=== PATIENT | male | born 1945 | race Asian ===

== ENCOUNTER 2017-03-10 21:07 | Inpatient (IN) | payer MEDICAID ==
[~2017-03-10] VITALS: Ht 172.7 cm; Wt 72.6 kg
--- NOTE | 2017-03-10 21:24 | NUR ---
PT C/O NOSEBLEED X 1 HR. BROUGHT IN BY EMS. HX OF CA. DR. MATTSON NOTIFIED, PLACED ON MONITOR. NO ACUTE DISTRESS
--- NOTE | 2017-03-10 22:02 | NUR ---
dr. navarrete at bedside to reassess nose
[2017-03-10 22:05] LABS: CALCIUM 7.8 mg/dL (8.5-10.1); CHLORIDE SERUM 104 mmol/L (98-107); CREATININE SERUM 0.7 mg/dL (0.7-1.3); GFR1 > 60 mL/min; GLUCOSE SERUM 134 mg/dL (74-106); POTASSIUM SERUM 3.4 mmol/L (3.5-5.1); SODIUM SERUM 137 mmol/L (136-145)
[2017-03-10 22:10] LABS: ALKALINE PHOSPHATASE 162 U/L (46-116); ALT/SGPT 76 U/L (16-63); AST/SGOT 62 U/L (15-37); BILIRUBIN TOTAL 1.69 mg/dL (0.20-1.00)
[2017-03-10 22:12] LABS: ALBUMIN 2.4 g/dL (3.4-5.0); TOTAL PROTEIN, SERUM 5.8 g/dL (6.4-8.2)
[2017-03-10 22:25] LABS: RED CELL DISTRIBUTION WIDTH 15.4 % (11.5-14.5)
[2017-03-10 22:26] LABS: PLATELET COUNT 9 x10^3mcL (130-400)
[2017-03-10 22:32] LABS: BAND NEUTROPHIL 0 % (0-10); BASOPHIL 0 % (0-2); MONOCYTE 10 % (0-7); PLATELET MORPHOLOGY PLATELETS DECREASED; SEGMENTED NEUTROPHILS 75 % (37-75); rbc morphology (normal/abnorm) ABNORMAL (NORMAL)
--- NOTE | 2017-03-10 22:49 | NUR ---
PT HAS PICC LINE IN R FA
[2017-03-10 23:30] LABS: microscopic required? NO
--- NOTE | 2017-03-10 23:42 | NUR ---
REPORT CALLED TO GOOD BEDOYA
[2017-03-10 23:48] LABS: UA SPECIFIC GRAVITY 1.015 (1.005-1.035); urine erythrocyte NEGATIVE (NEGATIVE)
[2017-03-11] VITALS (8 sets, daily range): BP systolic 128–146; BP diastolic 61–71
--- NOTE | 2017-03-11 00:26 | NUR ---
RECEIVED PT FROM ED VIA YOLANDA. ORIENTED PT TO ROOM AND SURROUNDINGS. IV NOTED TO LEFT HAND PATENT AND INTACT .TELE 8 PLACED ON PT READING NSR. INSTRUCED PT ON THE USE OF CALL LIGHT FOR ASSISTANCE. ENDORSED PT TO PRIMARY NURSE GOOD
--- NOTE | 2017-03-11 00:31 | NUR ---
RECEIVED PT FROM LEELEE RN. PT A/OX4. MANDARIN SPEAKING. FAMILY AT BEDSIDE. IV TO L HAND PATENT. PICC LINE TO L UPPER ARM, DRESSING CDI. NSR ON TELE 8. DENIES PAIN. DENIES SOB ON 2L SIMPLE MASK. RHINOROCKET TO R NOSTRIL FOR BLEED. PT WITH REDNESS TO FULL BODY. DENIES ITCHING OR DISCOMFORT. ORIENTED TO ROOM AND SURROUNDINGS. CALL LIGHT WITHIN REACH, BED IN LOW POSITION. WILL CONTINUE TO MONITOR.
[2017-03-11 00:37] LABS: MAGNESIUM 2.2 mg/dL (1.8-2.4); PHOSPHOROUS 4.4 mg/dL (2.5-4.9)
[2017-03-11 00:38] LABS: T3 TOTAL 0.46 ng/mL
[2017-03-11 00:47] LABS: FREE T4 1.47 ng/dL (0.76-1.46); FREE THYROXINE INDEX 4.4 ug/dL (1.4-4.5); T4(THYROXINE) 11.4 ug/dL (4.7-13.3)
--- NOTE | 2017-03-11 01:52 | NUR ---
PLATELETS TRANSFUSED WITH NO S/S OF REACTION. PT TOLERATED WELL. WILL CONTINUE TO MONITOR.
[2017-03-11 02:20] LABS: RED BLOOD CELLS 2.85 M/mm3 (4.52-5.90)
[2017-03-11 03:11] LABS: IRON 117 ug/dL (65-170)
[2017-03-11 03:12] LABS: TOTAL IRON BINDING CAPACITY 145 ug/dL (250-450)
[2017-03-11 03:17] LABS: RED CELL DISTRIBUTION WIDTH 15.7 % (11.5-14.5)
[2017-03-11 03:19] LABS: PLATELET COUNT 17 x10^3mcL (130-400)
[2017-03-11 03:42] LABS: ATYPICAL LYMPH 1 %; BAND NEUTROPHIL 5 % (0-10); BASOPHIL 0 % (0-2); METAMYELOCTE 4 % (0-2); MONOCYTE 18 % (0-7); MYELOCYTE 1 % (0-2); SEGMENTED NEUTROPHILS 17 % (37-75)
[2017-03-11 03:44] LABS: rbc morphology (normal/abnorm) ABNORMAL (NORMAL)
[2017-03-11 03:45] LABS: PLATELET MORPHOLOGY PLATELETS DECREASED
--- NOTE | 2017-03-11 06:03 | NUR ---
PT RESTING IN NO ACUTE DISTRESS. RR EVEN AND UNLABORED. FAMILY AT BEDSIDE. WILL CONTINUE TO MONITOR.
--- NOTE | 2017-03-11 08:03 | NUR ---
AAO. MANDARIN SPEAKING, PRESENT, SPEAKS A LITTLE BIT OF IVORIAN. WILL USE INTERPRETOR PHONE IF NEEDED. RHINO ROCKET TO RIGHT NARES. LUNGS CTA. NO SOB. O2 SAT ON 2L SIMPLE MASK 98%. BS'S ACTIVE TIMES 4. TOLERATING CLEAR LIQUIDS FAIRLY. PERIPHERAL PULSES PALPABLE. NO EDEMA. SCD BLE. SCATTERED PETECHIAE OVER BODY, BUE AND BLE. NO C/O PAIN. COOPERATIVE.
--- NOTE | 2017-03-11 08:26 | NUR ---
DR MONTE AND THE MEDICINE TEAM SAW THE PT. THE PLAN TODAY IS TO GIVE HIM PLATELETS. AND WHEN THE SON COMES, THE PRIMARY RESIDENT WILL HAVE A MEETING WITH THE FAMILY ABOUT PLAN OF CARE GOING FORWARD FOR MR FORTE.
--- NOTE | 2017-03-11 13:46 | NUR ---
DR BRITTON COVERING DR JOE. I TOLD HER THAT THE PT WOULDNT TAKE HIS PILLS THIS AM BECAUSE HE SAID HE COULDNT SWALLOW. NOW HE IS WANTING TO EAT, HE SAYS HES HUNGRY AND WANTS P[place]. DR BRITTON IS ORDERING A SWALLOW EVAL.
--- NOTE | 2017-03-11 15:18 | NUR ---
RECORD LIBRARIAN note (bedside swallow evaluation completed) [id number]. Bedside swallow evaluation completed, please see report for details. RECORD LIBRARIAN provided pt and pt's daughter (at bedside) with education regarding purpose of evaluation and rationale for recommendations. Pt's daughter verbalized understanding and agreement with recommendations at this time. Recommend: 1) pureed textures (per pt's/family's preference) 2) thin liquids 3) aspiration precautions (including pt must be fully awake/alert/upright for any PO intakes, alternate small/slow bites and sips, stop giving PO if pt becomes less alert/SOB/coughing) 4) feeding assistance 5) no further RECORD LIBRARIAN intervention indicated at this time. Physician to reorder if further concerns arise, as appropriate. G-codes: [id number] NOMS level 4. PVE for d/w RN (Yaquelin) prior to and following bedside swallow evaluation completion. RECORD LIBRARIAN posted safe swallow strategies sign above pt's HOB following review with RN and pt's daughter (in Mandarin Irish).
--- NOTE | 2017-03-11 15:29 | NUR ---
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 WBC:3.7L, H/H:6.9/20L Meds: Colace, Ferrous sulfate, Humulin, NS IV, Theragran, Zofran Diet:Clear liquid PO Intake: (03/11) B: 20% pt being fed by family Ht:68in, 5'8" Wt:160#, 72.57kg BMI:24.3kg/m2 (normal) IBW: 154#, 70kg %IBW:104 % UBW:pt's does know but has noticed recent wt loss. Age:71 y/o male Food Allergies:NKFA Skin:scattered petechiae Hang:15 Edema:None GI:active bowel sounds Last BM:03/10 Nursing Trigger: appears underweight/malnourished Pt admitted with Pancytopenia Plat 9, WBC 3.3, Hgb 7.5 hct 22 MCV 87 likley 2/2 leukemia and bladder cancer per H&P. Per RN note 03/11, plan today is for patient to the [facility] and whnd son comes, the primary resident will have a meeting with the family about going forward for Mr. Loja. During visit, observed pt laying in bed sleeping with at bedside. Student nurse helped translate during RD interview. Observed pt's using using a spoon to spoon feed pt water and pt was laying flat. Explained pt can aspirate. Swallow evaluation was ordered by Dr. Thompson. Pt was not hungry for breakfast and is hungry for lunch, asking for porridege. RD explained that the pt should be cleared first by the Speech Therapist, pt's agreeable. Per speech therapist note 03/11, recommend pureed with thin liquids per pt's family preference. Problem with: N: No V: No D:No C:No Problems with: Chewing:No Swallowing: No Current appetite: fair Recent wt change:unable to assess %wt change:N/A Vitamin/Supplement use:No Special diet at home:Regular Physical activity: uses wheelchair Education: RD educated pt's on making sure the pt is sitting up when giving fluids. Pt's receptive. Estimated Nutritional Needs Based on actual body weight 73 kg Energy:2190-2555kcal/d (30-35kcal/kg for leukemia and bladder cancer) Protein: 73-88g/d (1-1.2g/kg for repletion) Fluid:2190 ml/d (30ml/kg for maintenance) or per doctor Nutrition Diagnosis 1. Increased nutrient needs related to increased metabolic demands as evidenced by pt with Leukemia and bladder cancer. Intervention 1. Recommend CCHO pureed per Speech Therapist recommendation. 2. If pt's PO<75%, recommend adding Boost Glucose Control BID (provides 500kcal and 28 g protein) . Consider liberalizing diet to Reg pureed if pt with poor PO intake. Monitor/Evaluate Goal: PO intake at least 75% of estimated needs Monitor: PO intake, Labs, GI function F/U in 2-3 days as high risk:03/13-
--- NOTE | 2017-03-11 15:33 | NUR ---
1. Recommend CCHO pureed per Speech Therapist recommendation. 2. If pt's PO<75%, recommend adding Boost Glucose Control BID (provides 500kcal and 28 g protein) . Consider liberalizing diet to Reg pureed if pt with poor PO intake.
--- NOTE | 2017-03-11 16:42 | NUR ---
PERMISSION FROM DR BRITTON WAS RECIEVED TO USE THE PIC LINE, AFTER DR BRITTON LOOKED AT THE CXR RESULTS. PLATELETS WERE STARTED AT 1615, CHECKED THE PLATELET INFO WITH ROMELIA BEDOYA. NO TRANSFUSION REACTION WAS NOTED AFTER 15 MINUTES AND THE VS'S WERE NORMAL FOR PATIENT, SO THE RATE WAS INCREASED FROM 60 ML PER HOUR, SO THE RATE WAS TURNED UP PER PROTOCOL.
--- NOTE | 2017-03-11 17:32 | NUR ---
PLATELET PHARESIS FINSIHED AT 171. NO TRANSFUSION REACCTION NOTED. VS'S STABLE, TEMP 99.8. TYLENOL WAS GIVEN AT 165. PT'S GRANDSON PRESENT.
[2017-03-11 18:15] LABS: PLATELET COUNT 40 x10^3mcL (130-400); RED CELL DISTRIBUTION WIDTH 15.6 % (11.5-14.5)
--- NOTE | 2017-03-11 18:20 | NUR ---
AAO TIMES 4. GRANDSON PRESENT. TELE # 8 SR. VS'S STABLE. NO SOB. PIC LINE TO [facility] WITH ONLY ONE PORT WORKING, THE PURPLE WITH PURPLE BAND WORKS ONLY. IV SITE TO PATENT, CDI. TOLERATING FULL LIQUID DIET. NO C/O PAIN.
[2017-03-11 18:41] LABS: BAND NEUTROPHIL 2 % (0-10); BASOPHIL 0 % (0-2); MONOCYTE 3 % (0-7); SEGMENTED NEUTROPHILS 58 % (37-75)
[2017-03-11 18:43] LABS: PLATELET MORPHOLOGY PLATELETS DECREASED; rbc morphology (normal/abnorm) ABNORMAL (NORMAL)
--- NOTE | 2017-03-11 19:30 | NUR ---
PT IS A/O x4. ON TELE #8 NSR. DENIES ANY CHEST APIN AND PRESSURE. PULSES PRESENT. NO EDEMA NOTED. RHINOROCKET NOTED ON R NOSTRIL. NO BLEEDING NOTED. LUNGS ARE CLEAR IN ALL FEILDS. ON ROOM AIR. BOWEL SOUNDS PRESENT x4. ABD IS SOFT. DENIES ANY TENDERNESS. REDNESS SPOTS NOTED THROUGHOUT BODY. SKIN IN TACT. SALINE LOCK ON L HAND. PICC LINE ON RFA, ONLY ONE PORT IN USE. OTHER PORT IS UNABLE TO FLUSH. SITES ARE INTACT. BED IN LOWEST SETTING. CALL LIGHT WITHIN REACH. FAMILY IS AT BEDSIDE. WILL CONITNUE TO MONITOR.
[2017-03-11 22:19] LABS: RED CELL DISTRIBUTION WIDTH 15.2 % (11.5-14.5)
[2017-03-11 22:38] LABS: BAND NEUTROPHIL 3 % (0-10); BASOPHIL 0 % (0-2); MONOCYTE 3 % (0-7); SEGMENTED NEUTROPHILS 28 % (37-75)
[2017-03-11 22:39] LABS: PLATELET MORPHOLOGY PLATELETS DECREASED; rbc morphology (normal/abnorm) ABNORMAL (NORMAL)
[2017-03-11 22:42] LABS: PLATELET COUNT 25 x10^3mcL (130-400)
--- NOTE | 2017-03-12 01:52 | NUR ---
PT IS SLEEPING IN BED. FAMILY IS AT BEDSIDE. PICC LINE ON RFA IS PATENT, INTACT AND RUINNING PER MD ORDER. BED IN LOWEST SETTING. CALL LIGHT WITHIN REACH. WILL CONTINUE TO MONITOR.
--- NOTE | 2017-03-12 05:21 | NUR ---
PT IS SLEEPING IN BED. NO SIGN OF DISTRESS NOTED. PT TEMP WAS AT A 100.3. COOLING MESURES WERE STARTED. ON SIMPLE MASK 5L. NO BLEEDING NOTED. PT GRANDSON AT BEDSIDE. BED IN LOWEST SETTING. PICC LINE INTACT AND INFUSING PER MD ORDER. CALL LIGHT WITHIN REACH. WILL ENDORSE TO AM NURSE.
[2017-03-12 06:06] VITALS: BP 120/55
[2017-03-12 07:17] LABS: CALCIUM 7.6 mg/dL (8.5-10.1); CARBON DIOXIDE 26.3 mmol/L (21-32); CHLORIDE SERUM 102 mmol/L (98-107); CREATININE SERUM 0.7 mg/dL (0.7-1.3); GFR1 > 60 mL/min; GLUCOSE SERUM 114 mg/dL (74-106); MAGNESIUM 2.1 mg/dL (1.8-2.4); PHOSPHOROUS 3.3 mg/dL (2.5-4.9); POTASSIUM SERUM 3.8 mmol/L (3.5-5.1); SODIUM SERUM 136 mmol/L (136-145)
[2017-03-12 07:26] LABS: RED CELL DISTRIBUTION WIDTH 14.5 % (11.5-14.5)
[2017-03-12 07:42] LABS: PLATELET COUNT 17 x10^3mcL (130-400)
--- NOTE | 2017-03-12 07:56 | NUR ---
AAO. PT'S GRANDSON PRESENT, SUPPORTIVE AND CARING. LUNGS WITH FINE CRACKLES TO RIGHT SIDE. O2 SAT ON RA 97%. BS'S ACTIVE TIMES 4. FOUNTAIN WITH GENERALIZED WEAKNESS. PERIPHERAL PULSES PALPABLE, NO EDEMA. RHINO ROCKET TO RIGHT NARES. NO C/O PAIN.
--- NOTE | 2017-03-12 08:19 | NUR ---
DR MONTE AND THE MEDICINE TEAM SAW PT AND HIS GRANDSON AT 0816. THE PLAN TODAY IS TO GET HOSPICE ARRANGED FOR HIM.
[2017-03-12 09:18] LABS: BASOPHIL 0 % (0-2); rbc morphology (normal/abnorm) ABNORMAL (NORMAL)
[2017-03-12 09:19] LABS: PATH REVIEW for HEMA YES; PLATELET MORPHOLOGY PLATELETS DECREASED
[2017-03-12 10:03] VITALS: BP 120/55
[2017-03-12 14:02] LABS: BAND NEUTROPHIL 2 % (0-10); SEGMENTED NEUTROPHILS 8 % (37-75)
[2017-03-12 14:03] LABS: ATYPICAL LYMPH 14 %; MONOCYTE 6 % (0-7)
[2017-03-12 14:04] LABS: METAMYELOCTE 4 % (0-2); MYELOCYTE 4 % (0-2)
[2017-03-12 17:12] VITALS: BP 121/61
--- NOTE | 2017-03-12 17:53 | NUR ---
AAO. NO TELE. IV SITE RAC PIC LINE PATENT, CDI, PURPLE PORT PATENT. FAMILY PRESENT, SUPPORTIVE. NO SOB. NO C/O PAIN. SLEEPING MOST OF TIME, BUT HE IS AROUSABLE TO VERBAL STIMULI.
--- NOTE | 2017-03-12 18:33 | NUR ---
DR JOE AWARE THAT PT'S SON WANTS MR FORTE TO SLEEP, NOT TO WAKE HIM UP TO EAT OR TAKE HIS PILLS DUE AT 1800. THE SON REFUSED THE LACTINEX AND THE IRON PILLS.
--- NOTE | 2017-03-12 19:58 | NUR ---
PT IS A/O X4, VERBAL RESPONSIVE, ABLE TO TELL WHAT HE NEEDS. LUNG SOUND CLEAR BILATERAL, NO COUGH, NO SOB, PT IS ON SIMPLE MASK, PO2 98%, PT DENY ANY SOB AT THIS TIME, BOWEL SOUND PRESENT ALL 4 QUADRANTS, NO DISTENTION, NO TENDER. PEDAL PULSE PRESENT BOTH FEET, NO EDEMA, CENTRAL LINE AT RIGHT FA, DRESSING INTACT, JOELLEN ROCKET AT RIGHT NARE, NO BLEEDING NOTED, FAMILY AT BEDSIDE, ALL ADLS ASSIST, ALL NEED MET, CALL LIGHT IN REACH, WILL CONTINUE TO MONITOR.
[2017-03-12 21:46] VITALS: BP 126/64
--- NOTE | 2017-03-13 00:08 | NUR ---
PT IS RESTING AT BED, NO S/S OF RESPIRATORY DISTRESS, FAMILY AT BEDSIDE, ATB IS GIVEN, WILL CONTINUE TO MONITOR THE PT.
--- NOTE | 2017-03-13 04:37 | NUR ---
PT IS SLEEPING, AWAKE BY TOUCH, DENY ANY RESPIRATORY DISTRESS, DENY ANY PAIN OR DISCOMFORT, PICC LINE AT RIGHT FA, DRESSING INTACT, FAMILY AT BEDSIDE, ALL ADLS ASSIST, ALL NEED MET, CALL LIGHT IN REACH, WILL CONTINUE TO MONITOR.
[2017-03-13 05:29] VITALS: BP 123/62
[2017-03-13 06:37] LABS: RED CELL DISTRIBUTION WIDTH 14.4 % (11.5-14.5)
[2017-03-13 06:39] LABS: CALCIUM 7.2 mg/dL (8.5-10.1); CARBON DIOXIDE 29.3 mmol/L (21-32); CHLORIDE SERUM 104 mmol/L (98-107); CREATININE SERUM 0.7 mg/dL (0.7-1.3); GFR1 > 60 mL/min; GLUCOSE SERUM 102 mg/dL (74-106); POTASSIUM SERUM 3.8 mmol/L (3.5-5.1); SODIUM SERUM 137 mmol/L (136-145)
--- NOTE | 2017-03-13 07:30 | NUR ---
RECEIVED PATIENT IN BED WITH DAUGHTER AT BEDSIDE. PATIENT AWAKE ALERT AND ORIENTED. RHINO ROCKET NOTED IN RIGHT NARE. IVF INFUSING WELL TO LEFT HAND, SITE PATENT. PIC LINE NOTED ON RT F/A. GENERALIZED WEAKNESS NOTED. SCATTERED RED/BROWNISH DISCOLORATIONS NOTED ON BODY. NO OPEN AREAS NOTED. LUNGS CLEAR, RESP EVEN AND UNLABORED ON O2 AT 2L VIA SIMPLE MASK. ABD SOFT BOWEL SOUNDS ACTIVE, VOIDING WELL. WILL CONTINUE TO MONITOR.
[2017-03-13 07:31] LABS: PLATELET COUNT 6 x10^3mcL (130-400)
--- NOTE | 2017-03-13 08:20 | NUR ---
DR MONTE AND MEDICAL TEAM INTO SEE PATIENT AND DISCUSS PLAN OF CARE TO INCLUDE HOSPICE EVAL.
[2017-03-13 09:31] VITALS: BP 124/63
--- NOTE | 2017-03-13 10:00 | NUR ---
HOSPICE REP FROM [facility] AT BEDSIDE TO SPEAK WITH PATIENT'S SON.
[2017-03-13 11:22] LABS: BAND NEUTROPHIL 8 % (0-10); SEGMENTED NEUTROPHILS 8 % (37-75)
[2017-03-13 11:23] LABS: ATYPICAL LYMPH 8 %
[2017-03-13 11:24] LABS: MONOCYTE 12 % (0-7)
[2017-03-13 11:25] LABS: METAMYELOCTE 4 % (0-2); MYELOCYTE 4 % (0-2)
[2017-03-13 11:26] LABS: rbc morphology (normal/abnorm) ABNORMAL (NORMAL)
[2017-03-13 11:28] LABS: PLATELET MORPHOLOGY PLATELETS DECREASED; ovalocyte/elliptocyte 1+
[2017-03-13] MEDS ORDERED: LEVAQUIN750 MG PO (12:35)
[2017-03-13] MEDS ORDERED: LAC PO (12:36)
[2017-03-13 12:54] LABS: BASOPHIL 0 % (0-2)
[2017-03-13 13:21] VITALS: BP 124/63
--- NOTE | 2017-03-13 15:01 | NUR ---
Follow-up Nutrition Assessment Dx:Nasal hemorrhage Labs: (03/13) B, Ca:7.2L, WBC:3.3L, H/H:6.6/20L Meds: Colace, Ferrous sulfate, Lactinex, Levaquuin, NS IV, Theragran, Zofran Diet: Full liquid PO intake: (03/11) B:20%, L:100%, D:100% (03/12) B:50%, L:25%, D:25% (03/13) B:40% Weights: (03/11) 160#, 72.57kg (03/13) unable to weigh patient. Pt's son was very guarded Skin: scattered redness and scabs to lower lip Edema: None Last BM: 03/10 Per bed huddle this morning, a fuels sales representative from [facility] will come to speak to the patients son today. During visit, observed pt laying in bed sleeping with son at bedside. Pt's son was very guarded and wanted his father to to sleep. RD unable to weigh pt. Pt's son reports no GI issues at this time. RD offered Boost Plus supplements but pts son declined and said that the patient has been eating outside [place] food (soup) at this time. Estimated Nutritional Needs unchanged from prior assessment:actual body weight 73kg Energy: 2190-2555kcal/day (30-35kcal/kg for leukemia and bladder cancer) Protein: 73-88g/day (1-1.2g/kg for repletion) Fluid:2190ml/day (30ml/kg for maintenance) or per doctor Nutrition Diagnosis 1. Increased nutrient needs related to increased metabolic demands as evidenced by pt with Leukemia and bladder cancer (ongoing) Intervention 1. Recommend continue Full liquid diet. Monitor/Evaluate Previous goal: PO intake at least 75% est needs (not met) Goal: PO intake at least 75% of estimated needs Monitor: PO intake, Labs, GI function F/U in 2-3 days as high risk: 03/15-
--- NOTE | 2017-03-13 15:03 | NUR ---
1. Recommend continue Full liquid diet. Pt's family does not want any oral nutrition supplements at this time.
--- NOTE | 2017-03-13 15:19 | NUR ---
PATIENT REMAINS IN BED WITH SON AT BEDSIDE. D/C HOME WITH HOSPICE ORDER RECEIVED. AWAITING CONTACT FROM [facility] TO WHAT TIME PART TIME FLEXIBLE CLERK WILL BE. PATIENT APPPEARS TO BE RESTING WELL. NO C/O PAIN OR DISCOMFORT. WILL CONTINUE TO MONITOR.
--- NOTE | 2017-03-13 16:05 | NUR ---
DR JOE AT BEDSIDE AND D/C RT NARES RHINO ROCKET. ICE PACK APPLIED. NO ACTIVE BLEEDING NOTED. SON AT BEDSIDE. WILL CONTINUE TO MONITOR.
--- NOTE | 2017-03-13 17:08 | NUR ---
I HAVE REVIEWED THE DATA COLLECTION BY LAURA (NAME): EDITA MEDRANO ENTERED ON (DATE/TIME): 03/13/17 I CONCUR WITH THE DATA AND ANY EXCEPTIONS OR COMMENTS ARE LISTED BELOW:
--- NOTE | 2017-03-13 17:22 | NUR ---
PATIENT REMAINS IN BED WITH SON AT BEDSIDE. NO ACTIVE NASAL BLEEDING NOTED. PICC LINE REMAINS NOTED ON RT F/A. HL LEFT HAND. AWAITING [facility] TO CONTACT NURSE WITH TRANSPORT [facility] FORMING MACHINE TENDER TIME. NO ACUTE DISTRESS NOTED. WILL CONTINUE TO MONITOR.
[2017-03-13 17:31] VITALS: BP 116/57
--- NOTE | 2017-03-13 18:03 | NUR ---
DISCHARGE ON HOLD UNTIL TOMORROW PER HAND BULLDOZER PADMA. DR JOE AWARE.
--- NOTE | 2017-03-13 19:00 | NUR ---
PATIENT NOTED TO HAVE TISSUE IN RT NARE PLACED BY PATIENT'S SON. PER PATIENT WHEN PATIENT SITS UP HE HAS SMALL AMOUNT OF BLEEDING. DR JOE NOTIFIED AND PER HE WILL CONTACT NOC AND ASK HIM TO PLACE ANOTHER RHINO ROCKET.
--- NOTE | 2017-03-13 19:07 | NUR ---
AOX4, DROWSY BUT EASILY AWAKENS TO VERBAL STIMULI. MANDARIN SPEAKING ONLY. FAMILY AT BEDSIDE. MED SURG. PULSES PALPABLE. NO EDEMA. LUNGS CLEAR BUT DIMINISHED ON SIMPLE MASK @ 2L. BOWEL SOUNDS ACTIVE. RED SCATTERED DISCOLORATION/SPOTTING TO BUE AND BLE NOTED. DENIES PAIN. NS @ 70 ML/HR TO PICC LINE R FA. S/L TO LEFT HAND NOTED, CDI. DRY BLOOD NOTED TO LIPS. NO ACTIVE NASAL BLEEDING. BED IN LOW POSITION, CALL LIGHT IN REACH. INSTRUCTED TO CALL FOR ASSISTANCE.
--- NOTE | 2017-03-13 20:31 | NUR ---
DR. IVERSON AT BEDSIDE INSERTING RHINO ROCKET TO RIGHT NARE. PT TOLERATING WELL. WILL MONITOR FOR BLEEDING.
--- NOTE | 2017-03-13 20:35 | NUR ---
PT ESCORTED DOWNSTAIRS VIA W/C BY [facility]AVE[facility]. STABLE CONDITION. VSS. DISCHARGE INSTRUCTIONS EXPLAINED TO PT AND DAUGHTER, SIGNED BY DAUGHTER PER PT PERMISSION.
[2017-03-13 21:20] VITALS: BP 121/62
--- NOTE | 2017-03-14 02:25 | NUR ---
NO SIGN OF ACTIVE BLEED. RHINO ROCKET INTACT. NO ACUTE DISTRESS NOTED. FAMILY MEMBER AT BEDSIDE. WILL CONTINUE TO MONITOR.
[2017-03-14 05:55] VITALS: BP 121/63
--- NOTE | 2017-03-14 06:02 | NUR ---
AOX4. SLEEPY BUT AROUSABLE. FAMILY AT BEDSIDE. RHINO ROCKET IN PLACE WITH SCANT AMOUNT OF SANGUINEOUS DRAINAGE. NO ACUTE DISTRESS NOTED. WILL ENDORSE TO ONCOMING NURSE.
--- NOTE | 2017-03-14 07:45 | NUR ---
AWAKE,ALERT AND ABLE TO VERBALIZED NEEDS,REQUIRES. MOD. ASSIST W/ ADL NEEDS PT. NOTED GEN. WEAKNESS FAMILY AT BEDSIDE AND VERY SUPPORTIVE.CONT. IV FLUIDS AND IV ANTIBIOTIC ORDERED.VOIDING WELL IN URINAL.PACKING ROCKET RT. NOSE INTACT NOTED SMALL AMT OOZING BLOOD .DR. JOE MADE AWARE.SMALL GAUZ PRESSURE APPLIED.CONT ON SIMPLE MASK 5 L W/ R.T PROTOCOL. NO ACUTE RESP. DISTRESS NOTED.WILL CONT. PLAN OF CARE.
--- NOTE | 2017-03-14 08:50 | NUR ---
DR. MONTE WAS HERE MADE ROUNDS W/ OTHER MEDICAL STAFFS AND UPDATED PT. PLAN OF CARE.
--- NOTE | 2017-03-14 10:00 | NUR ---
DR. JOE HERE AND SEEN THE PT.NOTIFIED PLATELATES 6 AND MADE AWARE W/ NEW ORDERS TO GIVE PLATELATES PHERESIS.PT/SON MADE AWARE AND ALREADY SIGNED CONSENT. AWAITING FOR THE PLATELATES.
[2017-03-14 11:17] VITALS: BP 131/61
[2017-03-14 14:25] VITALS: BP 126/61
--- NOTE | 2017-03-14 14:25 | NUR ---
PLATELATES PHERESIS STARTED ORDERED ,EXPALINED THE ADVERSE REACTION OF PLATELET AND S/S SUCH ELEVATED TEMP,CHILLS, BACK ACHE, RASHES ,CHEST PAIN ECT.IF THERE IS ANY WORSENING S/S DISCUSSED ABOVE TO CALL NURSE AT ONCE PT/SON VERBALIZED UNDERSTANDING OF INSTRUCTIONS GIVEN.WILL CONT. TO MONITOR PT.CALL LIGHT W/ IN REACH.
--- NOTE | 2017-03-14 14:40 | NUR ---
RE-CHECKED V/S AFTER 15 MINUTES TEMP-98.7 HR-104 RR-19 B/P 123/61 02 SAT 98% NO ADVERSE REACTION NOTED. DENIES ANY PAIN MADE PT. COMFORTABLE IN BED. SON AT BEDSIDE.PLATELET PHERESIS INFUSING WELL.
[2017-03-14 14:45] VITALS: BP 123/61
--- NOTE | 2017-03-14 15:40 | NUR ---
PLATELET PHERESIS DONE NO ADVERSE REACTIONS NOTED.V/S TAKEN AND RECORDED T-98.1 HR-104 RR- 20 B/P 134/60 02 SAT 99%.PT. RESTING COMFORTABLY IN BED.CALL LIGHT W/ IN REACH.
--- NOTE | 2017-03-14 16:00 | NUR ---
DR. JOE HERE SEEN THE PT OK PT. TO GO HOME W/ HOSPICE PT/ GRANDSON MADE AWARE AWAITING FOR [facility] .
--- NOTE | 2017-03-14 17:00 | NUR ---
PT. WENT HOME W/ [facility] VIA [facility]. W/ ATTENDANT NO ACUTE DISTRESS NOTED. ALL DISCHARGED INSTRUCTION GIVEN TO PT/ GRANDSON.
[2017-03-14 17:20] LABS: RED CELL DISTRIBUTION WIDTH 14.2 % (11.5-14.5)
[2017-03-14 17:30] LABS: PLATELET COUNT 38 x10^3mcL (130-400)
[2017-03-14 20:52] LABS: ATYPICAL LYMPH 2 %; BAND NEUTROPHIL 5 % (0-10); BLAST 2 % (0); METAMYELOCTE 11 % (0-2); MONOCYTE 8 % (0-7); MYELOCYTE 17 % (0-2); SEGMENTED NEUTROPHILS 3 % (37-75)
[2017-03-14 20:53] LABS: rbc morphology (normal/abnorm) ABNORMAL (NORMAL)
[2017-03-14 20:54] LABS: PLATELET MORPHOLOGY PLATELETS DECREASED; ovalocyte/elliptocyte 2+
[2017-03-14 20:56] LABS: PATH REVIEW for HEMA YES
== END 2017-03-14 17:00 | disposition hospice, home (50) | DRG 661 ==
LOC: ED 21:07 → EDBD 23:15 → MU 23:15 → DU 23:15 → MU 03-12 06:26
PROVIDERS: Emergency Medicine; ADMIT Family Medicine
PROC: 2Y41X5Z Packing of Nasal Region using Packing Material (ICD-10-PCS; principal; 2017-03-10)
DX: D69.59 Other secondary thrombocytopenia (principal); J69.0 Pneumonitis due to inhalation of food and vomit; E43 Unspecified severe protein-calorie malnutrition; D61.818 Other pancytopenia; C95.90 Leukemia, unspecified not having achieved remission; C67.9 Malignant neoplasm of bladder, unspecified; E11.65 Type 2 diabetes mellitus with hyperglycemia; R04.0 Epistaxis; E87.6 Hypokalemia; Z66 Do not resuscitate; Z68.24 Body mass index [BMI] 24.0-24.9, adult
CPT/HCPCS: 82962; 83880; 84439; 85060; 92610-GN; 94150; J1200; J1956; J2270; J2405; J2916; J3490; J7030; J7040; J7620; P9035